=== PATIENT | male | born 1930 | race Caucasian/White ===

== ENCOUNTER → 2017-05-30 | Day surgery (SDC) | payer OTHER ==
[~2017-05-30] VITALS: Ht 172.7 cm; Wt 81.6 kg
[~2017-05-30] MED LIST: AMARYL1 MG; AMARYL2 MG PO; AMPICILLIN500 MG PO; BACTRIM DS 8001 TAB PO; CLOPIDOGREL75 MG PO; CORTISPORIN SUS10 ML OT; DELTASONE5 MG PO; DUONEB 3 MG/3 ML3 M1 NEB; FLOMAX0.4 MG PO; FUROSEMIDE20 MG PO; HYDROCODONE BIT1 T11 PO; LISINOPRIL20 MG PO; LOPRESSOR50 MG PO; LOVASTATIN40 MG PO; METOPROLOL50 MG PO; MUCINEX600 MG PO; NORVASC10 MG PO; NORVASC5 MG; PERCOCET 325 MG1 TA2 PO; PREDNISONE50 MG PO; Synthroid,Levo25 MCG PO; VENTOLIN H0.09 MG/AC INH; VITAMIN D2000 IU PO; ZETIA10 MG
--- NOTE | ~2017-05-30 | O ---
[place], [place] OPERATIVE NOTE NAME: FRANCES HUSTON UNIT #: [id number] ROOM: DOCTOR: TRACEY MALLOY,JIM BIRTHDATE: [birth year] DOS: 05/30/2017 An 86-year-old patient who has presented for colonic screening, constipation, dyspepsia history. DICTATION ENDS HERE. JIM WEBB MD CM:OPRECORD:OPERATIVE NOTE [id number] JIM WEBB MD 06/11/17 1114 [email or web address]
--- NOTE | ~2017-05-30 | O ---
[place], [place] OPERATIVE NOTE NAME: FRANCES HUSTON UNIT #: [id number] ROOM: DOCTOR: JIM WEBB MD BIRTHDATE: [birth year] DOS: 05/30/2017 INDICATIONS: The patient has presented with history of dyspepsia, constipation. ALLERGIES: TO ASPIRIN. FAMILY HISTORY: Noncontributory. PAST MEDICAL HISTORY: Hypertension, hypercholesterolemia, diabetes mellitus, coronary artery disease. PAST SURGICAL HISTORY: Broken arm, coronary artery stent, appendectomy. PROCEDURE: Today's procedure on 05/30/2017 is EGD and colonoscopy. PREMEDICATION: Versed and Diprivan. SCOPE: Olympus forward-viewing gastroscope Q10 video. REPORT: After putting the patient in left lateral position and application of lubricant to the scope, the scope was introduced; thereafter, under direct visualization, advanced through the length of esophagus without difficulty. Gastric pouch was entered. Antral ulcer was noticed. Biopsies were obtained. Duodenal bulb, second and third part within normal limits. The patient extubated, tolerated procedure well. IMPRESSION: Antral ulcer, status post biopsy, awaiting H. pylori results. PLAN AND DISCUSSION: We are going to proceed with colonoscopy for cause of constipation. GASTROENDOSCOPIC REPORT INDICATIONS: The patient has presented with constipation, undergoing investigation. PROCEDURE: Today's procedure part of investigation is colonoscopy plus polypectomy. PREMEDICATION: Versed and Diprivan. SCOPE: Olympus forward-viewing colonoscope 10L video. REPORT: After putting the patient in the left lateral position and application of lubricant to the scope, the scope was introduced; thereafter, under direct visualization, I advanced through the length of colon without difficulty. A polypoid lesion in the splenic area with piecemeal polypectomy removed. Base of the cecum explored, appendiceal orifice identified, and ileocecal valve was defined. The patient extubated, tolerated procedure well. [place], [place] OPERATIVE NOTE NAME: FRANCES HUSTON UNIT #: [id number] ROOM: DOCTOR: JIM WEBB MD BIRTHDATE: [birth year] IMPRESSION: Splenic flexure sessile polyp, status post piecemeal polypectomy. PLAN: High fiber fruit diet, activity ad lázaro. Protonix 40 mg 1 q. day for the gastric findings and follow up as outpatient. Thank you very much indeed. JIM WEBB MD CM:CINTIAORD:OPERATIVE NOTE [id number] JIM WEBB MD 06/11/17 1340 interface
[2017-05-30 12:08] VITALS: BP 198/71
[2017-05-30 13:47] VITALS: BP 131/59
[2017-05-30 14:02] VITALS: BP 130/60
[2017-05-30 14:17] VITALS: BP 167/62
== END | disposition home or self-care (01) ==
LOC: SDC 05-27 08:45
DX: D12.3 Benign neoplasm of transverse colon (principal); K25.9 Gastric ulcer, unspecified as acute or chronic, without hemorrhage or perforation; E78.00 Pure hypercholesterolemia, unspecified; I10 Essential (primary) hypertension; E11.9 Type 2 diabetes mellitus without complications; I25.10 Atherosclerotic heart disease of native coronary artery without angina pectoris; Z95.5 Presence of coronary angioplasty implant and graft; Z90.49 Acquired absence of other specified parts of digestive tract; K29.50 Unspecified chronic gastritis without bleeding; I25.2 Old myocardial infarction; Z98.890 Other specified postprocedural states; Z83.3 Family history of diabetes mellitus; Z80.9 Family history of malignant neoplasm, unspecified; Z82.49 Family history of ischemic heart disease and other diseases of the circulatory system; Z87.891 Personal history of nicotine dependence; Z88.8 Allergy status to other drugs, medicaments and biological substances

== ENCOUNTER 2017-06-06 08:04 | Emergency (ER) | payer OTHER ==
[~2017-06-06] VITALS: Wt 78.9 kg
[2017-06-06 08:53] LABS: BASO % 0.2 % (0.0-1.0); EOS # 0.2 10*3/uL (0.0-0.4); EOS % 2.9 % (1.0-4.0); HEMATOCRIT 39.5 % (42.0-52.0); HEMOGLOBIN 13.3 g/dl (14.0-18.0); LYMPH # 1.2 10*3/uL (1.3-4.4); LYMPH % 14.4 % (27.0-41.0); MEAN CELL VOLUME 90.2 fl (80.0-94.0); MEAN CORPUSCULAR HGB 30.4 pg (27.0-31.0); MEAN CORPUSCULAR HGB CONC 33.7 g/dl (33.0-37.0); MEAN PLATELET VOLUME 11.3 fl (9.6-12.3); MONO # 0.9 10*3/uL (0.1-1.0); MONO % 11.6 % (3.0-9.0); NEUT # 5.7 10*3/uL (2.3-7.9); NEUT % 70.4 % (47.0-73.0); PLATELET COUNT AUTOMATED 151 10*3/uL (130-400); RED BLOOD COUNT 4.38 10*6/uL (4.50-5.90); RED CELL DISTRI WIDTH 14.1 % (0-14.5)
[2017-06-06 09:02] LABS: PROTHROMBIN TIME 10.8 SECONDS (9.0-12.4)
[2017-06-06 09:09] LABS: BILIRUBIN, TOTAL 0.5 mg/dl (0.2-1.0); TOTAL PROTEIN 6.9 gm/dL (6.4-8.2)
== END 2017-06-06 19:20 | disposition short-term general hospital (02) ==
LOC: ED 08:04
PROVIDERS: Emergency Medicine
DX: I26.99 Other pulmonary embolism without acute cor pulmonale (principal); R09.81 Nasal congestion; R05 Cough; Z88.1 Allergy status to other antibiotic agents; Z88.6 Allergy status to analgesic agent; Z79.899 Other long term (current) drug therapy

== ENCOUNTER 2018-02-07 14:28 | Emergency (ER) | payer OTHER ==
[~2018-02-07] VITALS: Ht 172.7 cm; Wt 79.4 kg
[2018-02-07] MEDS ORDERED: PREDNISONE10 MG PO (14:54)
[2018-02-07] MEDS ORDERED: NORCO 5-325 TA1 EACH PO (14:54)
== END 2018-02-07 15:01 | disposition home or self-care (01) ==
LOC: ED 14:28
DX: M10.9 Gout, unspecified (principal); R03.0 Elevated blood-pressure reading, without diagnosis of hypertension; I25.2 Old myocardial infarction; Z86.711 Personal history of pulmonary embolism; Z88.6 Allergy status to analgesic agent; Z79.899 Other long term (current) drug therapy; Z88.1 Allergy status to other antibiotic agents